=== PATIENT | male | born 1975 | race Caucasian/White ===

== ENCOUNTER 2018-03-02 18:12 | Inpatient (IN) | payer OTHER ==
[2018-03-02 19:49] VITALS: BMI 23.1
--- NOTE | 2018-03-02 23:58 | HP ---
COWS - Scale Resting Pulse: 0= ME 80 or Below Sweatin=Flushed/Facial Moisture Restless Observation: 5= Unable to Sit Still Pupil Size: 0= Normal to Room Light Bone or Joint Aches: 4=Acute Joint/Muscle Pain Runny Nose/ Eye Tearin= Nasal Congestion GI Upset > 30mins: 2= Nausea/Diarrhea Tremor Observation: 1= Tremor [employer], Not Seen Yawning Observation: 0= None Anxiety or Irritability: 2=Irritable/Anxious Goose Flesh Skin: 0=Smooth Skin COWS Score: 17 CIWA Score Nausea/Vomitin-Mild Nausea/No Vomiting Muscle Tremors: 4-Moderate,w/Arms Extend Anxiety: 4-Mod. Anxious/Guarded Agitation: 4-Moderately Restless Paroxysmal Sweats: 3 Orientation: 2-Disoriented Date<2 days Tacttile Disturbances: 2-Mild Itch/Numbness/Burn Auditory Disturbances: 0-None Visual Disturbances: 0-None Headache: 3-Moderate CIWA-Ar Total Score: 23 - Admission Criteria [facility] Guidelines: Admission for Medically Managed Detox: Requires at least one of the followin. CIWA greater than 12 2. Seizures within the past 24 hours 3. Delirium tremens within the past 24 hours 4. Hallucinations within the past 24 hours 5. Acute intervention needed for co occurring medical disorder 6. Acute intervention needed for co occurring psychiatric disorder 7. Severe withdrawal that cannot be handled at a lower level of care (continued vomiting, continued diarrhea, abnormal vital signs) requiring intravenous medication and/or fluids 8. Patient presents the following: CIWA greater than 12, Acute intervention needed for co-occurring med or psych disorder Admission Criteria Met: Admission criteria met Admission ROS [facility] Chief Complaint: c/o worsening withdrawal sx's r/t opiate and acohol abstinence. seeking detox Allergies/Adverse Reactions: Allergies Allergy/AdvReac Type Severity Reaction Status Date / Time No Known Allergies Allergy Verified 03/02/18 23:52 History of Present Illness: 42 Y.O. MALE WITH HX/O ALCOHOLISM AND OPIOID DEPENDENCE HERE FOR DETOX. CLIENT IS REFERRED BY HIS PAROLE. THIS IS HIS FIRST ADMISSION HERE. DENIES ANY SIGNIFICANT CLEAN TIME. REPORTS HX/O AVH BUT PRESENTLY DENIES ALSO DENIES SI/HI , SEIZURE D/O. HOMELESS, UNEMPLOYED, PAROLE PMHX- ASTHMA, PSYCH- ANXIETY, DEPRESSION -NO MEDS Exam Limitations: No Limitations - Ebola screening Have you traveled outside of the country in the last 21 days: No Have you had contact with anyone from an Ebola affected area: No Have you been sick,other than usual withdrawal symptoms: No Do you have a fever: No - Review of Systems Constitutional: Chills, Loss of Appetite, Malaise, Night Sweats, Changes in sleep EENT: reports: No Symptoms Reported Respiratory: reports: Shortness of Breath Cardiac: reports: No Symptoms Reported GI: reports: Nausea, Poor Appetite, Poor Fluid Intake : reports: No Symptoms Reported Musculoskeletal: reports: Back Pain Integumentary: reports: Flushing Neuro: reports: No Symptoms reported Endocrine: reports: No Symptoms Reported Hematology: reports: No Symptoms Reported Psychiatric: reports: Anxious, Depressed Other Systems: Reviewed and Negative Patient History - Patient Medical History Hx Anemia: No Hx Asthma: Yes Hx Chronic Obstructive Pulmonary Disease (COPD): No Hx Cancer: No Hx Cardiac Disorders: No Hx Congestive Heart Failure: No Hx Hypertension: No Hx Hypercholesterolemia: No Hx Pacemaker: No HX Cerebrovascular Accident: No Hx Seizures: No Hx Dementia: No Hx Diabetes: No Hx Gastrointestinal Disorders: No Hx Liver Disease: No Hx Genitourinary Disorders: No Hx Sexually Transmitted Disorders: No Hx Renal Disease (ESRD): No Hx Thyroid Disease: No Hx Human Immunodeficiency Virus (HIV): No Hx Hepatitis C: No Hx Depression: Yes Hx Suicide Attempt: No Hx Bipolar Disorder: No Hx Schizophrenia: No Other Medical History: ANXIETY - Patient Surgical History Past Surgical History: Yes Hx Orthopedic Surgery: Yes (2015 R WRIST FX, 2012 LEFT FOOT) Anesthesia Reaction: No - PPD History Previous Implant?: Yes Documented Results: Negative w/o proof Implanted On Prior [facility] Admission?: No PPD to be Administered?: Yes - Smoking Cessation Smoking history: Current every day smoker Have you smoked in the past 12 months: Yes Aproximately how many cigarettes per day: 10 Cigars Per Day: 0 Hx Chewing Tobacco Use: No Initiated information on smoking cessation: Yes 'Breaking Loose' booklet given: 03/03/18 - Substance & Tx. History Hx Alcohol Use: Yes Hx Substance Use: Yes Substance Use Type: Alcohol, Heroin Hx Substance Use Treatment: Yes ([facility]) - Substances Abused HEROIN Route: Inhalation Frequency: Daily Amount used: 10 BAGS Age of first use: 21 Date of Last Use: 03/01/18 LIQUOR Route: Oral Frequency: Daily Amount used: 2 PINTS Age of first use: 17 Date of Last Use: 03/01/18 THC Route: Smoking Frequency: 1-3 times last 30 days Amount used: 2 JOINTS Age of first use: 11 Date of Last Use: 03/01/18 Family Disease History - Family Disease History Family Disease History: Other: Father ( ALCOHOLISM) Admission Physical Exam S - Vital Signs Vital Signs: Vital Signs - 24 hr 03/02/18 19:47 Temperature 96.9 F L Pulse Rate 67 Respiratory 18 Rate Blood Pressure 133/97 - Physical General Appearance: Yes: Disheveled, Moderate Distress, Tremorous, Anxious HEENTM: Yes: EOMI, Normocephalic, Normal Voice, CHAO, Pharynx Normal, Nasal Congestion Respiratory: Yes: Chest Non-Tender, Lungs Clear, Normal Breath Sounds, No Respiratory Distress, No Accessory Muscle Use Neck: Yes: No masses,lesions,Nodules, Supple, Trachea in good position Breast: Yes: Breast Exam Deferred Cardiology: Yes: Regular Rhythm, S1, S2, Tachycardia Abdominal: Yes: Normal Bowel Sounds, Non Tender, Flat, Soft Genitourinary: Yes: Other (NO C/O) Back: Yes: Normal Inspection Musculoskeletal: Yes: full range of Motion, Gait Steady Extremities: Yes: Normal Range of Motion, Non-Tender, Tremors Neurological: Yes: Alert, Motor Strength 5/5, Depressed Affect Integumentary: Yes: Dry, Warm Lymphatic: Yes: Within Normal Limits - Diagnostic (1) Alcohol dependence with uncomplicated withdrawal Current Visit: Yes Status: Acute (2) Opioid dependence with withdrawal Current Visit: Yes Status: Acute (3) Cannabis abuse, uncomplicated Current Visit: Yes Status: Acute (4) Nicotine dependence Current Visit: Yes Status: Acute Qualifiers: Nicotine product type: cigarettes Substance use status: uncomplicated Qualified Code(s): F17.210 - Nicotine dependence, cigarettes, uncomplicated (5) Asthma Current Visit: Yes Status: Chronic Qualifiers: Asthma severity: mild Asthma persistence: intermittent Asthma complication type: uncomplicated Qualified Code(s): J45.20 - Mild intermittent asthma, uncomplicated (6) At risk for dehydration due to poor fluid intake Current Visit: Yes Status: Acute (7) Substance induced mood disorder Current Visit: Yes Status: Suspected (8) Substance-induced sleep disorder Current Visit: Yes Status: Suspected (9) Homeless Current Visit: Yes Status: Suspected Cleared for Admission [facility] - Detox or Rehab [facility] Level of Care: Medically Managed Detox Regimen/Protocol: Methadone/Librium Claeared for Rehab Admission: No S Breath Alcohol Content Breath Alcohol Content: 0 Urine Drug Screen - Results Drug Screen Negative: No Urine Drug Screen Results: THC-Marijuana, OPI-Opiates, BAR-Barbiturates, BZO- Benzodiazepines, MTD-Methadone, FEN-Fentanyl
[2018-03-03] MEDS ORDERED: MENTHOL/PHENOL 1 EACH UD MM PRN (00:03)
[2018-03-03] MEDS ORDERED: ACETAMINOPHEN 325 MG TABLET (FP) PO PRN (00:03)
[2018-03-03] MEDS ORDERED: guaiFENesin/D-METHORPHAN HB 10 ML UNIT-DOSE CUPS PO PRN (00:03)
[2018-03-03] MEDS ORDERED: METHADONE HCL 10 MG TABLET (FOR DETOX USE ONLY) PO ONE ×3 (00:03→22:00)
[2018-03-03] MEDS ORDERED: P-EPHED 60MG/TRIPROLIDI 2.5MG TABLET PO PRN (00:03)
[2018-03-03] MEDS ORDERED: MAGNESIUM HYDROX 2400MG/30ML ORAL SUSPENSION 30 ML CUP PO PRN (00:03)
[2018-03-03] MEDS ORDERED: LOPERAMIDE HCL 2 MG CAPSULE PO PRN (00:03)
[2018-03-03] MEDS ORDERED: MAGNESIUM CITRATE 300 ML BOTTLE PO PRN (00:03)
[2018-03-03] MEDS ORDERED: IBUPROFEN 400 MG TABLET (FP) PO PRN (00:03)
[2018-03-03] MEDS ORDERED: MAG HYDROX/AL HYDROX/SIMETH 30 ML UNIT-DOSE CUP PO PRN (00:03)
[2018-03-03] MEDS: chlordiazePOXIDE HCL 25 MG CAPSULE PO PRN ×2 (01:04→13:59)
[2018-03-03] MEDS: chlordiazePOXIDE HCL 25 MG CAPSULE PO SCH ×4 (05:11→22:12)
[2018-03-03] MEDS: ALBUTEROL SO4 8 GM HFA INHALER IH PRN ×2 (05:13→22:26)
[2018-03-03 10:14] LABS: HEMATOCRIT 40.2 % (35.4-49); HEMOGLOBIN 13.2 GM/dL (11.7-16.9); MCH 29.5 pg (25.7-33.7); MCHC 32.8 g/dl (32.0-35.9); MEAN CELL VOLUME 90.1 fl (80-96); MEAN PLT VOLUME 7.5 fl (7.5-11.1); PLATELET COUNT 262 K/MM3 (134-434); RBC 4.46 M/mm3 (4.00-5.60); RDW 13.3 % (11.9-15.9); WHITE BLOOD COUNT 8.6 K/mm3 (4.0-10.0)
[2018-03-03 10:21] LABS: URINE APPEARANCE CLEAR; URINE BILIRUBIN NEGATIVE (<2.0 mg/dL); URINE COLOR YELLOW; URINE GLUCOSE (UA) NEGATIVE (NEGATIVE); URINE KETONE NEGATIVE (NEGATIVE); URINE LEUK ESTERASE NEGATIVE (NEGATIVE); URINE NITRITE NEGATIVE (NEGATIVE); URINE PROTEIN NEGATIVE (NEGATIVE)
[2018-03-03 10:33] LABS: ALBUMIN 3.1 g/dl (3.4-5.0); ALK PHOS 113 U/L (45-117); ANION GAP 7 MMOL/L (8-16); BILIRUBIN,TOTAL 0.3 mg/dL (0.2-1); BLOOD UREA NITROGEN 16 mg/dL (7-18); CALCIUM 8.3 mg/dL (8.5-10.1); CHLORIDE 104 mmol/L (98-107); CO2 30 mmol/L (21-32); CREATININE 0.8 mg/dL (0.55-1.3); GLUCOSE,RANDOM 86 mg/dL (74-106); POTASSIUM 3.8 mmol/L (3.5-5.1); SGOT/AST 68 U/L (15-37); SGPT/ALT 75 U/L (13-61); SODIUM 141 mmol/L (136-145); TOT PROT 6.2 g/dl (6.4-8.2)
[2018-03-03] MEDS: PRENATAL VITAMINS W/ FOLIC ACID TABLET (FP) PO SCH (10:51)
--- NOTE | 2018-03-03 11:10 | CONSULT ---
[facility] Psychiatric Consult - Data Date of interview: 03/03/17 Admission source: [facility] Identifying data: Patient is a 42 year old single male, without children, unemployed, homeless, and not receiving financial assistance. This is patient's first admission to detox at [facility]. Patient admitted to for alcohol, opiate, and cocaine dependence. Substance Abuse History: Smoking Cessation. Smoking history: Current every day smoker. Have you smoked in the past 12 months: Yes. Aproximately how many cigarettes per day: 10. Cigars Per Day: 0. Hx Chewing Tobacco Use: No. Initiated information on smoking cessation: Yes. 'Breaking Loose' booklet given : 03/03/18. - Substance & Tx. History. Hx Alcohol Use: Yes. Hx Substance Use : Yes. Substance Use Type: Alcohol, Heroin. Hx Substance Use Treatment: Yes ( [facility]). - Substances Abused. HEROIN. Route: Inhalation. Frequency: Daily. Amount used: 10 BAGS. Age of first use: 21. Date of Last Use: 03/01/18. LIQUOR. Route: Oral. Frequency: Daily. Amount used: 2 PINTS. Age of first use: 17. Date of Last Use: 03/01/18. THC. Route: Smoking. Frequency: 1-3 times last 30 days. Amount used: 2 JOINTS. Age of first use: 11. Date of Last Use: 03/01/18 Medical History: Asthma, 2016 right wrist fx, 2013 left foot Psychiatric History: Patient reports h/o of 5-6 psychiatric hospitalization from [id number] secondary to drug induced psychosis for rodriguez dust abuse. Patient reports taking zoloft 100mg during his years of incarceration from 1995 - 2012 (murder charges). After his release, he was again incarcerated for four additional years for violating his parole. He reports history of anxiety and depression. Mr. Malik denies h/o suicide attempt. Patient refuses to resume zoloft, states the medication was not effective. At present, he reports feeling anxious. Physical/Sexual Abuse/Trauma History: Denies. Mental Status Exam - Mental Status Exam Alert and Oriented to: Time, Place, Person Cognitive Function: Good Patient Appearance: Well Groomed Mood: Anxious, Euthymic Affect: Mood Congruent Patient Behavior: Appropriate, Cooperative Speech Pattern: Clear, Appropriate Voice Loudness: Normal Thought Process: Intact, Goal Oriented Thought Disorder: Not Present Hallucinations: Denies Suicidal Ideation: Denies Homicidal Ideation: Denies Insight/Judgement: Poor Sleep: Fair Appetite: Fair Muscle strength/Tone: Normal Gait/Station: Normal Psychiatric Findings - Problem List ([place] 1, 2,3) (1) Substance-induced anxiety disorder Current Visit: Yes Status: Acute (2) Alcohol dependence with uncomplicated withdrawal Current Visit: Yes Status: Acute (3) Cannabis abuse, uncomplicated Current Visit: Yes Status: Acute (4) Opioid dependence with withdrawal Current Visit: Yes Status: Acute (5) Nicotine dependence Current Visit: Yes Status: Acute Qualifiers: Nicotine product type: cigarettes Substance use status: uncomplicated Qualified Code(s): F17.210 - Nicotine dependence, cigarettes, uncomplicated (6) Substance induced mood disorder Current Visit: Yes Status: Suspected - Initial Treatment Plan Initial Treatment Plan: Psychoeducation provided. Detoxification in progress. Will order Vistaril 50mg q6h. Benefits and side effects discussed. Verbal consent given.
[2018-03-03] MEDS: NICOTINE 14 MG/24 HOURS TOPICAL PATCH TD SCH (11:24)
--- NOTE | 2018-03-03 11:44 | PN ---
[facility] CIWA - CIWA Score Nausea/Vomitin-Mild Nausea/No Vomiting Muscle Tremors: 4-Moderate,w/Arms Extend Anxiety: 4-Mod. Anxious/Guarded Agitation: 3 Paroxysmal Sweats: 3 Orientation: 1-Uncertain about Date Tacttile Disturbances: 1-Very Mild Itch/Numbness Auditory Disturbances: 1-Very Mild Visual Disturbances: 0-None Headache: 1-Very Mild CIWA-Ar Total Score: 19 BHS COWS - Scale Resting Pulse: 0= [place] 80 or Below Sweatin= Chills/Flushing Restless Observation: 0= Sits Still Pupil Size: 0= Normal to Room Light Bone or Joint Aches: 2= Severe Diffuse Aches Runny Nose/ Eye Tearin= Runny Nose/Eyes GI Upset > 30mins: 2= Nausea/Diarrhea Tremor Observation of Outstretched Hands: 2= Slight Tremor Visible Yawning Observation: 2= >3x During Session Anxiety or Irritability: 2=Irritable/Anxious Goose Flesh Skin: 0=Smooth Skin COWS Score: 13 S Progress Note (SOAP) Subjective: body aches tremor sweat muscle cramping restlessness Objective: 03/03/18 11:46 Vital Signs Temperature 96.4 F L 03/03/18 09:24 Pulse Rate 55 L 03/03/18 09:24 Respiratory Rate 18 03/03/18 09:24 Blood Pressure 108/66 03/03/18 09:24 O2 Sat by Pulse Oximetry (%) Laboratory Last Values WBC 8.6 K/mm3 (4.0-10.0) 03/03/18 07:00 RBC 4.46 M/mm3 (4.00-5.60) 03/03/18 07:00 Hgb 13.2 GM/dL (11.7-16.9) 03/03/18 07:00 Hct 40.2 % (35.4-49) 03/03/18 07:00 MCV 90.1 fl (80-96) 03/03/18 07:00 MCH 29.5 pg (25.7-33.7) 03/03/18 07:00 MCHC 32.8 g/dl (32.0-35.9) 03/03/18 07:00 RDW 13.3 % (11.9-15.9) 03/03/18 07:00 Plt Count 262 K/MM3 (134-434) 03/03/18 07:00 MPV 7.5 fl (7.5-11.1) 03/03/18 07:00 Sodium 141 mmol/L (136-145) 03/03/18 07:00 Potassium 3.8 mmol/L (3.5-5.1) 03/03/18 07:00 Chloride 104 mmol/L (98-107) 03/03/18 07:00 Carbon Dioxide 30 mmol/L (21-32) 03/03/18 07:00 Anion Gap 7 MMOL/L (8-16) L 03/03/18 07:00 BUN 16 mg/dL (7-18) 03/03/18 07:00 Creatinine 0.8 mg/dL (0.55-1.3) 03/03/18 07:00 Creat Clearance w eGFR > 60 (>60) 03/03/18 07:00 Random Glucose 86 mg/dL (74-106) 03/03/18 07:00 Calcium 8.3 mg/dL (8.5-10.1) L 03/03/18 07:00 Total Bilirubin 0.3 mg/dL (0.2-1) 03/03/18 07:00 AST 68 U/L (15-37) H 03/03/18 07:00 ALT 75 U/L (13-61) H 03/03/18 07:00 Alkaline Phosphatase 113 U/L (45-117) 03/03/18 07:00 Total Protein 6.2 g/dl (6.4-8.2) L 03/03/18 07:00 Albumin 3.1 g/dl (3.4-5.0) L 03/03/18 07:00 Urine Color Yellow 03/03/18 06:49 Urine Appearance Clear 03/03/18 06:49 Urine pH 6.0 (5.0-8.0) 03/03/18 06:49 Ur Specific [place] 1.021 (1.010-1.035) 03/03/18 06:49 Urine Protein Negative (NEGATIVE) 03/03/18 06:49 Urine Glucose (UA) Negative (NEGATIVE) 03/03/18 06:49 Urine Ketones Negative (NEGATIVE) 03/03/18 06:49 Urine Blood Negative (NEGATIVE) 03/03/18 06:49 Urine Nitrite Negative (NEGATIVE) 03/03/18 06:49 Urine Bilirubin Negative (<2.0 mg/dL) 03/03/18 06:49 Urine Urobilinogen 2.0 mg/dL (0.2-1.0) 03/03/18 06:49 Ur Leukocyte Esterase Negative (NEGATIVE) 03/03/18 06:49 RPR Titer Nonreactive (NONREACTIVE) 03/03/18 07:00 lab noted Assessment: 03/03/18 11:46 withdrawal sx Plan: continue detox
[2018-03-03] MEDS: NICOTINE POLACRILEX 2 MG GUM BC PRN (13:59)
[2018-03-03] MEDS: THIAMINE HCL 100 MG TABLET (FP) PO SCH (22:12)
[2018-03-04] MEDS: MELATONIN 5 MG TABLETS PO PRN ×2 (00:07→22:13)
[2018-03-04] MEDS: hydrOXYzine PAMOATE 50 MG CAPSULE (FP) PO PRN (00:07)
[2018-03-04] MEDS: chlordiazePOXIDE HCL 25 MG CAPSULE PO SCH ×4 (05:32→22:13)
[2018-03-04] MEDS ORDERED: METHADONE HCL 10 MG TABLET (FOR DETOX USE ONLY) PO SCH (10:00)
[2018-03-04] MEDS: PRENATAL VITAMINS W/ FOLIC ACID TABLET (FP) PO SCH (10:39)
[2018-03-04] MEDS: NICOTINE POLACRILEX 2 MG GUM BC PRN ×2 (10:41→22:32)
[2018-03-04] MEDS: NICOTINE 14 MG/24 HOURS TOPICAL PATCH TD SCH (11:19)
--- NOTE | 2018-03-04 12:34 | PN ---
S CIWA - CIWA Score Nausea/Vomitin Muscle Tremors: 2 Anxiety: 2 Agitation: 2 Paroxysmal Sweats: 1-Minimal Palms Moist Orientation: 0-Oriented Tacttile Disturbances: 1-Very Mild Itch/Numbness Auditory Disturbances: 0-None Visual Disturbances: 1-Very Mild Sensitivity Headache: 2-Mild CIWA-Ar Total Score: 13 BHS COWS - Scale Resting Pulse: 0= [place] 80 or Below Sweatin= Chills/Flushing Restless Observation: 3= Extraneous Movement Pupil Size: 1= Pupils >than Normal Bone or Joint Aches: 2= Severe Diffuse Aches Runny Nose/ Eye Tearin= Nasal Congestion GI Upset > 30mins: 2= Nausea/Diarrhea Tremor Observation of Outstretched Hands: 2= Slight Tremor Visible Yawning Observation: 1= 1-2x During Session Anxiety or Irritability: 2=Irritable/Anxious Goose Flesh Skin: 0=Smooth Skin COWS Score: 15 BHS Progress Note (SOAP) Subjective: alert,irritable,anxious,interrupted sleep tremor,pain in the body and back Objective: 03/04/18 12:32 Vital Signs Temperature 97.3 F L 03/04/18 09:58 Pulse Rate 54 L 03/04/18 09:58 Respiratory Rate 16 03/04/18 09:58 Blood Pressure 104/63 03/04/18 09:58 O2 Sat by Pulse Oximetry (%) 03/04/18 12:33 Laboratory Last Values WBC 8.6 K/mm3 (4.0-10.0) 03/03/18 07:00 RBC 4.46 M/mm3 (4.00-5.60) 03/03/18 07:00 Hgb 13.2 GM/dL (11.7-16.9) 03/03/18 07:00 Hct 40.2 % (35.4-49) 03/03/18 07:00 MCV 90.1 fl (80-96) 03/03/18 07:00 MCH 29.5 pg (25.7-33.7) 03/03/18 07:00 MCHC 32.8 g/dl (32.0-35.9) 03/03/18 07:00 RDW 13.3 % (11.9-15.9) 03/03/18 07:00 Plt Count 262 K/MM3 (134-434) 03/03/18 07:00 MPV 7.5 fl (7.5-11.1) 03/03/18 07:00 Sodium 141 mmol/L (136-145) 03/03/18 07:00 Potassium 3.8 mmol/L (3.5-5.1) 03/03/18 07:00 Chloride 104 mmol/L (98-107) 03/03/18 07:00 Carbon Dioxide 30 mmol/L (21-32) 03/03/18 07:00 Anion Gap 7 MMOL/L (8-16) L 03/03/18 07:00 BUN 16 mg/dL (7-18) 03/03/18 07:00 Creatinine 0.8 mg/dL (0.55-1.3) 03/03/18 07:00 Creat Clearance w eGFR > 60 (>60) 03/03/18 07:00 Random Glucose 86 mg/dL (74-106) 03/03/18 07:00 Calcium 8.3 mg/dL (8.5-10.1) L 03/03/18 07:00 Total Bilirubin 0.3 mg/dL (0.2-1) 03/03/18 07:00 AST 68 U/L (15-37) H 03/03/18 07:00 ALT 75 U/L (13-61) H 03/03/18 07:00 Alkaline Phosphatase 113 U/L (45-117) 03/03/18 07:00 Total Protein 6.2 g/dl (6.4-8.2) L 03/03/18 07:00 Albumin 3.1 g/dl (3.4-5.0) L 03/03/18 07:00 Urine Color Yellow 03/03/18 06:49 Urine Appearance Clear 03/03/18 06:49 Urine pH 6.0 (5.0-8.0) 03/03/18 06:49 Ur Specific [place] 1.021 (1.010-1.035) 03/03/18 06:49 Urine Protein Negative (NEGATIVE) 03/03/18 06:49 Urine Glucose (UA) Negative (NEGATIVE) 03/03/18 06:49 Urine Ketones Negative (NEGATIVE) 03/03/18 06:49 Urine Blood Negative (NEGATIVE) 03/03/18 06:49 Urine Nitrite Negative (NEGATIVE) 03/03/18 06:49 Urine Bilirubin Negative (<2.0 mg/dL) 03/03/18 06:49 Urine Urobilinogen 2.0 mg/dL (0.2-1.0) 03/03/18 06:49 Ur Leukocyte Esterase Negative (NEGATIVE) 03/03/18 06:49 RPR Titer Nonreactive (NONREACTIVE) 03/03/18 07:00 Assessment: 03/04/18 12:33 withdrawal symptom Plan: continue detox
[2018-03-04] MEDS: THIAMINE HCL 100 MG TABLET (FP) PO SCH (22:13)
[2018-03-05] MEDS: chlordiazePOXIDE 5 MG CAPSULE PO SCH ×4 (05:35→22:16)
[2018-03-05] MEDS: PRENATAL VITAMINS W/ FOLIC ACID TABLET (FP) PO SCH (10:42)
[2018-03-05] MEDS: METHADONE HCL 5 MG TABLET (FOR DETOX USE ONLY) PO SCH (10:42)
[2018-03-05] MEDS: NICOTINE 14 MG/24 HOURS TOPICAL PATCH TD SCH (10:43)
[2018-03-05] MEDS: NICOTINE POLACRILEX 2 MG GUM BC PRN ×2 (10:44→19:38)
[2018-03-05] MEDS: LIDOCAINE 5% TOPICAL PATCH TP SCH (12:35)
--- NOTE | 2018-03-05 13:20 | PN ---
BHS Progress Note (SOAP) Subjective: ANXIETY, SWEATS, LOWER BACK PAIN. Objective: 03/05/18 13:19 Vital Signs 03/05/18 03/05/18 06:16 10:12 Temperature 97.1 F L 97.4 F L Pulse Rate 53 L 72 Respiratory 18 16 Rate Blood Pressure 113/76 117/86 Laboratory Tests 03/03/18 03/03/18 03/03/18 06:49 07:00 07:00 WBC 8.6 RBC 4.46 Hgb 13.2 Hct 40.2 MCV 90.1 MCH 29.5 MCHC 32.8 RDW 13.3 Plt Count 262 MPV 7.5 Sodium 141 Potassium 3.8 Chloride 104 Carbon Dioxide 30 Anion Gap 7 L BUN 16 Creatinine 0.8 Creat Clearance w eGFR > 60 Random Glucose 86 Calcium 8.3 L Total Bilirubin 0.3 AST 68 H ALT 75 H Alkaline Phosphatase 113 Total Protein 6.2 L Albumin 3.1 L Urine Color Yellow Urine Appearance Clear Urine pH 6.0 Ur Specific [place] 1.021 Urine Protein Negative Urine Glucose (UA) Negative Urine Ketones Negative Urine Blood Negative Urine Nitrite Negative Urine Bilirubin Negative Urine Urobilinogen 2.0 Ur Leukocyte Esterase Negative RPR Titer 03/03/18 07:00 WBC RBC Hgb Hct MCV MCH MCHC RDW Plt Count MPV Sodium Potassium Chloride Carbon Dioxide Anion Gap BUN Creatinine Creat Clearance w eGFR Random Glucose Calcium Total Bilirubin AST ALT Alkaline Phosphatase Total Protein Albumin Urine Color Urine Appearance Urine pH Ur Specific [place] Urine Protein Urine Glucose (UA) Urine Ketones Urine Blood Urine Nitrite Urine Bilirubin Urine Urobilinogen Ur Leukocyte Esterase RPR Titer Nonreactive Assessment: 03/05/18 13:19 WITHDRAWAL SX Plan: CONTINUE DETOX LIDOCAINE PATCH DIRECTED
[2018-03-05] MEDS: LIDOCAINE PATCH REMOVAL MC SCH (22:14)
[2018-03-05] MEDS: hydrOXYzine PAMOATE 50 MG CAPSULE (FP) PO PRN (22:16)
[2018-03-05] MEDS: THIAMINE HCL 100 MG TABLET (FP) PO SCH (22:16)
[2018-03-06] MEDS: chlordiazePOXIDE HCL 10 MG CAPSULE PO SCH ×4 (05:32→22:16)
[2018-03-06] MEDS: ALBUTEROL SO4 8 GM HFA INHALER IH PRN (05:32)
[2018-03-06] MEDS: PRENATAL VITAMINS W/ FOLIC ACID TABLET (FP) PO SCH (10:47)
[2018-03-06] MEDS: METHADONE HCL 5 MG TABLET (FOR DETOX USE ONLY) PO SCH (10:48)
[2018-03-06] MEDS: LIDOCAINE 5% TOPICAL PATCH TP SCH (10:49)
[2018-03-06] MEDS: NICOTINE 14 MG/24 HOURS TOPICAL PATCH TD SCH (10:50)
[2018-03-06] MEDS: NICOTINE POLACRILEX 2 MG GUM BC PRN ×2 (10:50→13:04)
--- NOTE | 2018-03-06 15:35 | PN ---
BHS Progress Note (SOAP) Subjective: Sweating, interrupted sleep Objective: 03/06/18 15:33 Last Vital Signs Temp Pulse Resp BP Pulse Ox 98.1 F 66 20 120/76 03/06/18 15:09 03/06/18 15:09 03/06/18 15:09 03/06/18 15:09 Laboratory Tests 03/03/18 03/03/18 03/03/18 06:49 07:00 07:00 WBC 8.6 RBC 4.46 Hgb 13.2 Hct 40.2 MCV 90.1 MCH 29.5 MCHC 32.8 RDW 13.3 Plt Count 262 MPV 7.5 Sodium 141 Potassium 3.8 Chloride 104 Carbon Dioxide 30 Anion Gap 7 L BUN 16 Creatinine 0.8 Creat Clearance w eGFR > 60 Random Glucose 86 Calcium 8.3 L Total Bilirubin 0.3 AST 68 H ALT 75 H Alkaline Phosphatase 113 Total Protein 6.2 L Albumin 3.1 L Urine Color Yellow Urine Appearance Clear Urine pH 6.0 Ur Specific [place] 1.021 Urine Protein Negative Urine Glucose (UA) Negative Urine Ketones Negative Urine Blood Negative Urine Nitrite Negative Urine Bilirubin Negative Urine Urobilinogen 2.0 Ur Leukocyte Esterase Negative RPR Titer 03/03/18 07:00 WBC RBC Hgb Hct MCV MCH MCHC RDW Plt Count MPV Sodium Potassium Chloride Carbon Dioxide Anion Gap BUN Creatinine Creat Clearance w eGFR Random Glucose Calcium Total Bilirubin AST ALT Alkaline Phosphatase Total Protein Albumin Urine Color Urine Appearance Urine pH Ur Specific [place] Urine Protein Urine Glucose (UA) Urine Ketones Urine Blood Urine Nitrite Urine Bilirubin Urine Urobilinogen Ur Leukocyte Esterase RPR Titer Nonreactive Labs reviewed Assessment: 03/06/18 15:34 Withdrawal symptoms Plan: Continue detox Encouraged PO water hydration
--- NOTE | 2018-03-06 17:14 | EKG ---
Test Reason : Blood Pressure : / mmHG Vent. Rate : 053 BPM Atrial Rate : 053 BPM P-R Int : 150 ms QRS Dur : 086 ms QT Int : 410 ms P-R-T Axes : 048 050 021 degrees QTc Int : 384 ms SINUS BRADYCARDIA NONSPECIFIC ST ABNORMALITY LEFT VENTRICULAR HYPERTROPHY ABNORMAL ECG Confirmed by MD BECKI, CHERELLE ([id number]) on 03/06/2018 5:14:21 PM Referred By: Confirmed By:CHERELLE CONNELL MD
[2018-03-06] MEDS: LIDOCAINE PATCH REMOVAL MC SCH (22:14)
[2018-03-06] MEDS: THIAMINE HCL 100 MG TABLET (FP) PO SCH (22:16)
[2018-03-06] MEDS: hydrOXYzine PAMOATE 50 MG CAPSULE (FP) PO PRN (22:16)
[2018-03-07] MEDS ORDERED: METHADONE HCL 10 MG TABLET (FOR DETOX USE ONLY) PO SCH (10:00)
[2018-03-07] MEDS: ALBUTEROL SO4 8 GM HFA INHALER IH PRN (10:44)
[2018-03-07] MEDS: PRENATAL VITAMINS W/ FOLIC ACID TABLET (FP) PO SCH (10:44)
[2018-03-07] MEDS: NICOTINE 14 MG/24 HOURS TOPICAL PATCH TD SCH (11:03)
--- NOTE | 2018-03-07 11:16 | PN ---
BHS Progress Note (SOAP) Subjective: feeling better less tremor no sweating mild body aches Objective: 03/07/18 11:15 Vital Signs Temperature 97.1 F L 03/07/18 09:32 Pulse Rate 62 03/07/18 09:32 Respiratory Rate 18 03/07/18 09:32 Blood Pressure 105/58 L 03/07/18 09:32 O2 Sat by Pulse Oximetry (%) Laboratory Last Values WBC 8.6 K/mm3 (4.0-10.0) 03/03/18 07:00 RBC 4.46 M/mm3 (4.00-5.60) 03/03/18 07:00 Hgb 13.2 GM/dL (11.7-16.9) 03/03/18 07:00 Hct 40.2 % (35.4-49) 03/03/18 07:00 MCV 90.1 fl (80-96) 03/03/18 07:00 MCH 29.5 pg (25.7-33.7) 03/03/18 07:00 MCHC 32.8 g/dl (32.0-35.9) 03/03/18 07:00 RDW 13.3 % (11.9-15.9) 03/03/18 07:00 Plt Count 262 K/MM3 (134-434) 03/03/18 07:00 MPV 7.5 fl (7.5-11.1) 03/03/18 07:00 Sodium 141 mmol/L (136-145) 03/03/18 07:00 Potassium 3.8 mmol/L (3.5-5.1) 03/03/18 07:00 Chloride 104 mmol/L (98-107) 03/03/18 07:00 Carbon Dioxide 30 mmol/L (21-32) 03/03/18 07:00 Anion Gap 7 MMOL/L (8-16) L 03/03/18 07:00 BUN 16 mg/dL (7-18) 03/03/18 07:00 Creatinine 0.8 mg/dL (0.55-1.3) 03/03/18 07:00 Creat Clearance w eGFR > 60 (>60) 03/03/18 07:00 Random Glucose 86 mg/dL (74-106) 03/03/18 07:00 Calcium 8.3 mg/dL (8.5-10.1) L 03/03/18 07:00 Total Bilirubin 0.3 mg/dL (0.2-1) 03/03/18 07:00 AST 68 U/L (15-37) H 03/03/18 07:00 ALT 75 U/L (13-61) H 03/03/18 07:00 Alkaline Phosphatase 113 U/L (45-117) 03/03/18 07:00 Total Protein 6.2 g/dl (6.4-8.2) L 03/03/18 07:00 Albumin 3.1 g/dl (3.4-5.0) L 03/03/18 07:00 Urine Color Yellow 03/03/18 06:49 Urine Appearance Clear 03/03/18 06:49 Urine pH 6.0 (5.0-8.0) 03/03/18 06:49 Ur Specific [place] 1.021 (1.010-1.035) 03/03/18 06:49 Urine Protein Negative (NEGATIVE) 03/03/18 06:49 Urine Glucose (UA) Negative (NEGATIVE) 03/03/18 06:49 Urine Ketones Negative (NEGATIVE) 03/03/18 06:49 Urine Blood Negative (NEGATIVE) 03/03/18 06:49 Urine Nitrite Negative (NEGATIVE) 03/03/18 06:49 Urine Bilirubin Negative (<2.0 mg/dL) 03/03/18 06:49 Urine Urobilinogen 2.0 mg/dL (0.2-1.0) 03/03/18 06:49 Ur Leukocyte Esterase Negative (NEGATIVE) 03/03/18 06:49 RPR Titer Nonreactive (NONREACTIVE) 03/03/18 07:00 lab noted Assessment: 03/07/18 11:16 mild withdrawal sx Plan: continue detox
[2018-03-07] MEDS: LIDOCAINE 5% TOPICAL PATCH TP SCH (12:33)
[2018-03-07] MEDS: NICOTINE POLACRILEX 2 MG GUM BC PRN ×2 (16:07→18:56)
[2018-03-07] MEDS: LIDOCAINE PATCH REMOVAL MC SCH (22:31)
[2018-03-07] MEDS: MELATONIN 5 MG TABLETS PO PRN (22:35)
[2018-03-07] MEDS: THIAMINE HCL 100 MG TABLET (FP) PO SCH (22:35)
[2018-03-07] MEDS: hydrOXYzine PAMOATE 50 MG CAPSULE (FP) PO PRN (22:35)
[2018-03-08] MEDS ORDERED: METHADONE HCL 5 MG TABLET (FOR DETOX USE ONLY) PO SCH (06:00)
[2018-03-08 09:38] VITALS: BP 109/77; PULSE 65; TEMP 96.6
[2018-03-08] MEDS: PRENATAL VITAMINS W/ FOLIC ACID TABLET (FP) PO SCH (10:45)
[2018-03-08] MEDS: LIDOCAINE 5% TOPICAL PATCH TP SCH (10:46)
[2018-03-08] MEDS: NICOTINE 14 MG/24 HOURS TOPICAL PATCH TD SCH (10:47)
[2018-03-08] MEDS: NICOTINE POLACRILEX 2 MG GUM BC PRN (10:48)
--- NOTE | 2018-03-08 13:09 | DS ---
[facility] Detox Discharge Summary Admission Date: 03/02/18 Discharge Date: 03/08/18 - History Present History: Alcohol Dependence, Opioid Dependence Additional Comments: 42 years old male admitted on 03/02/18 for alcohol and opiate withdrawal stabilization completed detox regimen alert after[facility] Physical Exam Results Vital Signs: Vital Signs Temperature 96.6 F L 03/08/18 09:38 Pulse Rate 65 03/08/18 09:38 Respiratory Rate 17 03/08/18 09:38 Blood Pressure 109/77 03/08/18 09:38 O2 Sat by Pulse Oximetry (%) Pertinent Admission Physical Exam Findings: alcohol and opiate withdrawal sx Laboratory Last Values WBC 8.6 K/mm3 (4.0-10.0) 03/03/18 07:00 RBC 4.46 M/mm3 (4.00-5.60) 03/03/18 07:00 Hgb 13.2 GM/dL (11.7-16.9) 03/03/18 07:00 Hct 40.2 % (35.4-49) 03/03/18 07:00 MCV 90.1 fl (80-96) 03/03/18 07:00 MCH 29.5 pg (25.7-33.7) 03/03/18 07:00 MCHC 32.8 g/dl (32.0-35.9) 03/03/18 07:00 RDW 13.3 % (11.9-15.9) 03/03/18 07:00 Plt Count 262 K/MM3 (134-434) 03/03/18 07:00 MPV 7.5 fl (7.5-11.1) 03/03/18 07:00 Sodium 141 mmol/L (136-145) 03/03/18 07:00 Potassium 3.8 mmol/L (3.5-5.1) 03/03/18 07:00 Chloride 104 mmol/L (98-107) 03/03/18 07:00 Carbon Dioxide 30 mmol/L (21-32) 03/03/18 07:00 Anion Gap 7 MMOL/L (8-16) L 03/03/18 07:00 BUN 16 mg/dL (7-18) 03/03/18 07:00 Creatinine 0.8 mg/dL (0.55-1.3) 03/03/18 07:00 Creat Clearance w eGFR > 60 (>60) 03/03/18 07:00 Random Glucose 86 mg/dL (74-106) 03/03/18 07:00 Calcium 8.3 mg/dL (8.5-10.1) L 03/03/18 07:00 Total Bilirubin 0.3 mg/dL (0.2-1) 03/03/18 07:00 AST 68 U/L (15-37) H 03/03/18 07:00 ALT 75 U/L (13-61) H 03/03/18 07:00 Alkaline Phosphatase 113 U/L (45-117) 03/03/18 07:00 Total Protein 6.2 g/dl (6.4-8.2) L 03/03/18 07:00 Albumin 3.1 g/dl (3.4-5.0) L 03/03/18 07:00 Urine Color Yellow 03/03/18 06:49 Urine Appearance Clear 03/03/18 06:49 Urine pH 6.0 (5.0-8.0) 03/03/18 06:49 Ur Specific [place] 1.021 (1.010-1.035) 03/03/18 06:49 Urine Protein Negative (NEGATIVE) 03/03/18 06:49 Urine Glucose (UA) Negative (NEGATIVE) 03/03/18 06:49 Urine Ketones Negative (NEGATIVE) 03/03/18 06:49 Urine Blood Negative (NEGATIVE) 03/03/18 06:49 Urine Nitrite Negative (NEGATIVE) 03/03/18 06:49 Urine Bilirubin Negative (<2.0 mg/dL) 03/03/18 06:49 Urine Urobilinogen 2.0 mg/dL (0.2-1.0) 03/03/18 06:49 Ur Leukocyte Esterase Negative (NEGATIVE) 03/03/18 06:49 RPR Titer Nonreactive (NONREACTIVE) 03/03/18 07:00 lab noted - Treatment Hospital Course: Detox Protocol Followed, Detoxed Safely, Responded well, Discharged Condition Good, Rehab Referral Accepted Patient has Accepted a Rehab Referral to: [facility] - Medication Discharge Medications: Ambulatory Orders Ventolin HFA Inhaler - 2 puff PO Q4H PRN 03/03/18 Albuterol Sulfate Inhaler - [Ventolin HFA Inhaler -] 2 puff IH Q4H PRN #1 inhaler 03/07/18 Albuterol Sulfate Inhaler - [Ventolin Hfa Inhaler -] 2 puff IH Q4H PRN 03/07/18 - Diagnosis (1) Alcohol dependence with uncomplicated withdrawal Current Visit: Yes Status: Acute (2) Opioid dependence with withdrawal Current Visit: Yes Status: Acute (3) Asthma Current Visit: Yes Status: Chronic Qualifiers: Asthma severity: mild Asthma persistence: intermittent Asthma complication type: uncomplicated Qualified Code(s): J45.20 - Mild intermittent asthma, uncomplicated (4) Nicotine dependence Current Visit: Yes Status: Acute Qualifiers: Nicotine product type: cigarettes Substance use status: in withdrawal Qualified Code(s): F17.213 - Nicotine dependence, cigarettes, with withdrawal (5) Substance induced mood disorder Current Visit: Yes Status: Suspected - AMA Did Patient Leave Against Medical Advice: No
== END 2018-03-08 03:35 | disposition other institution (70) | DRG 773 ==
LOC: YASAS 18:12 → Y3N 23:37
PROC: HZ2ZZZZ Detoxification Services for Substance Abuse Treatment (ICD-10-PCS; principal; 2018-03-02)
DX: F11.23 Opioid dependence with withdrawal (principal); F10.230 Alcohol dependence with withdrawal, uncomplicated; F12.10 Cannabis abuse, uncomplicated; F17.213 Nicotine dependence, cigarettes, with withdrawal; F19.282 Other psychoactive substance dependence with psychoactive substance-induced sleep disorder; F19.24 Other psychoactive substance dependence with psychoactive substance-induced mood disorder; F19.280 Other psychoactive substance dependence with psychoactive substance-induced anxiety disorder; F41.8 Other specified anxiety disorders; F32.9 Major depressive disorder, single episode, unspecified; E86.0 Dehydration; M54.5 Low back pain; Z91.89 Other specified personal risk factors, not elsewhere classified; Z59.0 Homelessness
CPT/HCPCS: 36415; 80053; 81003; 85027; 86593; 93005; 93010

== ENCOUNTER 2018-03-08 15:42 | Inpatient (IN) | payer OTHER ==
--- NOTE | 2018-03-08 13:10 | HP ---
[facility] Rehab Assess/Revision - Admission History Admitted to Rehab from: [facility] Date of Admission to Rehab: 03/08/18 - Findings Detox History & Physical reviewed: Yes Concur with findings: Yes Comments/Additional Findings: transferred from detox to rehab admission as per protocol Inpatient Rehab Admission - Initial Determination Are CD services needed?: Yes Free of communicable disease: Yes Not in need of hospitalization: Yes - Rehab Admission Criteria Previous failed treatment: Yes Poor recovery environment: Yes Comorbidities: Yes Lacks judgement: No Patient is meeting Inpatient Rehab admission criteria:: Yes
[~2018-03-08 15:42] MED LIST: ACETAMINOPHEN 325 MG TABLET (FP) PO PRN; ALBUTEROL SO4 8 GM HFA INHALER IH PRN; IBUPROFEN 400 MG TABLET (FP) PO PRN; LOPERAMIDE HCL 2 MG CAPSULE PO PRN; MAG HYDROX/AL HYDROX/SIMETH 30 ML UNIT-DOSE CUP PO PRN; MAGNESIUM CITRATE 300 ML BOTTLE PO PRN; MAGNESIUM HYDROX 2400MG/30ML ORAL SUSPENSION 30 ML CUP PO PRN; MENTHOL/PHENOL 1 EACH UD MM PRN; NICOTINE 14 MG/24 HOURS TOPICAL PATCH TD PRN; NICOTINE POLACRILEX 2 MG GUM BUC PRN; P-EPHED 60MG/TRIPROLIDI 2.5MG TABLET PO PRN; guaiFENesin/D-METHORPHAN HB 10 ML UNIT-DOSE CUPS PO PRN
[2018-03-08] MEDS: THIAMINE HCL 100 MG TABLET (FP) PO SCH (21:29)
[2018-03-08] MEDS: MELATONIN 5 MG TABLETS PO PRN (21:29)
[2018-03-09] MEDS: PRENATAL VITAMINS W/ FOLIC ACID TABLET (FP) PO SCH (10:10)
--- NOTE | 2018-03-09 10:38 | HP ---
Psychiatrist Admission - Data Date of interview: 03/09/18 Admission source: 3N Identifying data: This is the first [facility] admission for this 42 years old single male, unemployed with no source of income, homeless Medical History: Significant for bronchial asthma and history of orthosurgery for fractures of right wrist in 2016 & left foot in 2013. 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 He said that he has had various admissions for similar reason from 1993 to 1994. For above admissions, he is known to [facility], [facility], [facility] and [facility]. During these admissions, he reports receiving Haldol, Cogentin and Benadryl. 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 Reports not taking medication during that time except while incarcerated in [facility] from July 2017 to December 2017, he was prescribed Zoloft. Claims he has not been taking medication since his release in December because he was not provided with any nor referred for outpatient psychiatric treatment. Denies history of previous suicidal attempt. At present, reports feeling depressed, anxious and sleeping poorly. Physical/Sexual Abuse/Trauma History: Denies emotional, physical or sexual abuse as well as DV relationship. No mipitary service Additional Comment: Reports history of multiple previous arrests including one felony conviction. Reports beong on parole till June 03, 2020 Vital Signs: Vital Signs - 24 hr 03/09/18 03/09/18 01:03 06:50 Temperature 97.9 F Pulse Rate 62 Respiratory 18 18 Rate Blood Pressure 94/76 Allergies/Adverse Reactions: Allergies Allergy/AdvReac Type Severity Reaction Status Date / Time Fish Containing Products Allergy Verified 03/03/18 01:32 fish derived Allergy Verified 03/03/18 01:32 fish oil Allergy Verified 03/03/18 01:32 Date of last physical exam: 03/02/18 Concur with the findings of this exam: Yes - Substance Abuse/Tx History Hx Alcohol Use: Yes Hx Substance Use: Yes Substance Use Type: Alcohol (Started drinking alcohol at age 17, consumes 2 pints of liquor daily. Last drank on 03/01/18), Heroin (Started using heroin at age 21, consumes 10 bags daily. Last used on 03/01/18), Marijuana (Started smoking marijuana at age 11, consumes 2 joints 1-3 times in the last 30 days. Last smoked on 03/01/18) Hx Substance Use Treatment: Yes (5 previous inpt rehab admissions. First inpt rehab) Mental Status Exam - Mental Status Exam Alert and Oriented to: Time, Place, Person Cognitive Function: Fair Patient Appearance: Well Groomed Mood: Depressed, Anxious Affect: Appropriate Patient Behavior: Cooperative Speech Pattern: Clear Voice Loudness: Normal Thought Process: Intact Thought Disorder: Not Present Hallucinations: Denies Suicidal Ideation: Denies Homicidal Ideation: Denies Insight/Judgement: Fair Sleep: Poorly Appetite: Good Muscle strength/Tone: Normal Gait/Station: Normal Psychiatric Findings - Problem List ([place] 1, 2,3) (1) Alcohol dependence Current Visit: Yes Status: Acute (2) Opioid dependence Current Visit: Yes Status: Acute (3) Cannabis abuse Current Visit: Yes Status: Acute (4) Nicotine dependence Current Visit: No Status: Acute Qualifiers: Nicotine product type: cigarettes Substance use status: in withdrawal Qualified Code(s): F17.213 - Nicotine dependence, cigarettes, with withdrawal (5) Substance induced mood disorder Current Visit: Yes Status: Acute (6) Substance-induced sleep disorder Current Visit: Yes Status: Acute (7) Lower back pain Current Visit: No Status: Acute Qualifiers: Chronicity: unspecified (8) Asthma Current Visit: No Status: Chronic Qualifiers: Asthma severity: mild Asthma persistence: intermittent Asthma complication type: uncomplicated Qualified Code(s): J45.20 - Mild intermittent asthma, uncomplicated - Initial Treatment Plan Initial Treatment Plan: 1) Start Vistaril 50 mg po Q 4 hrs prn for anxiety. 2) Monitor progress
[2018-03-09] MEDS: hydrOXYzine PAMOATE 50 MG CAPSULE (FP) PO PRN ×2 (13:59→21:25)
[2018-03-09] MEDS: THIAMINE HCL 100 MG TABLET (FP) PO SCH (21:25)
[2018-03-09] MEDS: MELATONIN 5 MG TABLETS PO PRN (21:25)
[2018-03-10 07:09] VITALS: BP 129/74; PULSE 56; TEMP 97.6
[2018-03-10] MEDS: PRENATAL VITAMINS W/ FOLIC ACID TABLET (FP) PO SCH (10:36)
--- NOTE | 2018-03-10 14:09 | PN ---
[facility] Progress Note Note: PT SIGNED OUT AMA FOR PERSONAL REASONS. PT DECLINED TO BE SEEN BY THIS LIBRARY INFORMATION TECHNICIAN AND STATES HE IS LEAVING BECAUSE "YOU PEOLE ARE NOT GOING TO GIVE ME WHAT I WANT ANYWAY. I'M LEAVING". ALERT O X 3. ALL EFFORTS TO ENCOURAGE PT TO CONTINUE TREATMENT WAS NOT SUCCESSFUL. PT WAS SEEN AND SPOKEN TO BY HIS COUNSELOR NARCISA. PT WAS REFERRED TO [facility] FOR FOLLOW UP TREATMENT. Vital Signs - 24 hr 03/10/18 03/10/18 03/10/18 00:30 03:30 07:09 Temperature 97.6 F Pulse Rate 56 L Respiratory 18 18 18 Rate Blood Pressure 129/74 NAD PLAN;PT SIGNED OUT AMA FOLLOW UP WITH AFTERCARE REFERRAL GIVEN BY YOUR COUNSELOR.
== END 2018-03-10 14:00 | disposition left against medical advice (07) | DRG 770 ==
LOC: YASAS 15:42 → Y5N 15:43
PROVIDERS: ADMIT Psychiatry & Neurology Psychiatry; ATTEND Psychiatry & Neurology Psychiatry
PROC: HZ42ZZZ Group Counseling for Substance Abuse Treatment, Cognitive-Behavioral (ICD-10-PCS; principal; 2018-03-08)
DX: F11.20 Opioid dependence, uncomplicated (principal); F10.20 Alcohol dependence, uncomplicated; F12.10 Cannabis abuse, uncomplicated; F17.213 Nicotine dependence, cigarettes, with withdrawal; F19.24 Other psychoactive substance dependence with psychoactive substance-induced mood disorder; F19.282 Other psychoactive substance dependence with psychoactive substance-induced sleep disorder; M54.5 Low back pain; J45.909 Unspecified asthma, uncomplicated; Z59.0 Homelessness